=== PATIENT | female | born 1960 | race Asian ===

== ENCOUNTER 2017-01-03 05:39 | Day surgery (SDC) | END 2017-01-03 12:13 | disposition home or self-care (01) | DX: K44.9 Diaphragmatic hernia without obstruction or gangrene (principal); K21.0 Gastro-esophageal reflux disease with esophagitis; K29.60 Other gastritis without bleeding | CPT/HCPCS: 43239; 87081; J2250; J3010 ==

== ENCOUNTER 2017-03-18 11:57 | Day surgery (SDC) | payer OTHER ==
[2017-03-18] VITALS (14 sets, daily range): BP systolic 98–152; BP diastolic 56–84; PULSE 60–85; RESP 15–45; Ht 157.5 cm; Wt 64.0 kg
[~2017-03-18] VITALS: Ht 157.5 cm; Wt 64.0 kg
[2017-03-18] MEDS ORDERED: FAMO40TA52 PO (12:37)
[2017-03-18] MEDS ORDERED: PANT40TA3 PO (12:38)
--- NOTE | 2017-03-18 16:43 | HPN ---
Date/Time of Note Date/Time of Note DATE: 03/18/17 TIME: 16:43 Interval H&P Admission Note Pt. seen H&P reviewed: No system changes LIYA GILMORE MD Mar 18, 2017 16:43
[2017-03-18] MEDS ORDERED: ROCURONIUM 50 MG INJ ONE (17:53)
[2017-03-18] MEDS ORDERED: PROPOFOL 20 ML ONE (17:53)
[2017-03-18] MEDS ORDERED: MEPERIDINE 100 MG INJ ONE (17:53)
[2017-03-18] MEDS ORDERED: GLYCOPYRROLATE 0.4 MG INJ ONE (17:53)
[2017-03-18] MEDS ORDERED: NEOSTIGMINE 3 MG/3 ML SYRINGE ONE (17:53)
[2017-03-18] MEDS ORDERED: LIDOCAINE 2% (SDV) 5 ML INJ ONE (17:53)
[2017-03-18] MEDS ORDERED: SUCCINYLCHOLINE CHLORIDE 100 MG/5 ML SYG IV ONE (17:53)
[2017-03-18] MEDS ORDERED: CEFAZOLIN 1 GM INJ ONE (18:18)
[2017-03-18] MEDS ORDERED: DEXAMETHASONE 4 MG/ML 1 ML INJ ONE (18:38)
[2017-03-18] MEDS ORDERED: ONDANSETRON 4 MG INJ ONE (18:59)
[2017-03-18] MEDS ORDERED: METOCLOPRAMIDE 10 MG INJ IV PRN (19:00)
[2017-03-18] MEDS ORDERED: MIDAZOLAM 1 MG/ML 2 ML INJ IV PRN (19:00)
[2017-03-18] MEDS ORDERED: LABETALOL HCL 20MG INJ IV PRN (19:00)
[2017-03-18] MEDS ORDERED: hydrALAzine 20 MG INJ IV PRN (19:00)
[2017-03-18] MEDS ORDERED: EPHEDrine SULFATE 50 MG/5 ML SYG IV PRN (19:00)
[2017-03-18] MEDS ORDERED: FENTAnyl 50 MCG/ML VIAL IV PRN ×2 (19:00)
[2017-03-18] MEDS ORDERED: MEPERIDINE 25 MG INJ IV PRN (19:00)
[2017-03-18] MEDS ORDERED: ONDANSETRON 4 MG INJ IV PRN (19:00)
[2017-03-18] MEDS ORDERED: OXYCODONE/ACETAMINOPHEN (5/325) TAB PO PRN ×2 (19:00)
[2017-03-18] MEDS ORDERED: HYDROmorphONE (0.2 MG/ML) 10ML SYG IV PRN ×2 (19:00)
[2017-03-18] MEDS ORDERED: DIPHENHYDRAMINE 50 MG INJ IV PRN (19:00)
[2017-03-18] MEDS ORDERED: EPHEDrine SULFATE 50 MG/5 ML SYG ONE (19:13)
--- NOTE | 2017-03-18 19:20 | OPR ---
Date/Time of Note Date/Time of Note DATE: 03/18/17 TIME: 19:03 Operative Report Procedure Date: Mar 18, 2017 Preoperative Diagnosis Right vocal cord immobility, right thyroid nodule. Postoperative Diagnosis Same Operation/Procedure Performed Right thyroid lobectomy. Surgeon Liya Cifuentes Sulfonator Operator Divine Cleary Anesthesia Type: general Estimated Blood Loss: 10 - 50 ml's Transfusion none Specimen Right thyroid lobe and isthmus. Grafts/Implants none Complications none Pt Condition Post Procedure: stable Disposition: PACU Indications Right thyroid nodule, compressive, vocal cord paralysis. Procedure Description Description of procedure: The patient was identified in the holding area. We had a discussion to confirm understanding of indications, risks, benefits, alternatives and postoperative care associated with the operation. Informed consent was signed. The patient was taken the operating room and placed supine on the operating table. General endotracheal anesthesia was achieved with a recurrent laryngeal nerve monitor capable endotracheal tube and recurrent laryngeal nerve monitoring was performed throughout the duration of the case. A shoulder roll was placed. The neck was prepped and draped in normal sterile fashion. A 15 blade was used to make a horizontal incision in a preexisting cervical crease. Subplatysmal flaps were elevated circumferentially. The midline raphe between the strap muscles was identified and vertically divided using monopolar cautery. The right sided strap muscles were elevated off the thyroid lobe. Dissection was fairly easy as there were no adhesions or signs of invasion.The superior pole of the thyroid gland was identified and bluntly dissected free to isolate the superior laryngeal nerve and the super pole vascular pedicle. The nerve was kept intact as the vessels were individually ligated and transected with the Liga-sure small jaw. In addition hemoclips were used to assure continued hemostasis. More inferiorly, the middle thyroid vein was taken after careful ligation and transection. The inferior mass was quite large and almost retrosternal in location. It was bluntly freed and displaced medially to expose the TE groove. Dissection in the tracheoesophageal groove was used to identify the recurrent laryngeal nerve. It was followed superiorly to the cricothyroid joint and in this area the the superior parathyroid gland was identified. The parathyroid was carefully dissected laterally saving the pedicle after which overlying thyroid tissue was from its fibrous attachments to the surrounding soft tissues with the bipolar forceps. More inferior dissection was used to free the entirety of the recurrent laryngeal nerve. The inferior parathyroid and surrounding fat pad was at this point identified and swept laterally, again sparing the pedicle. Careful inspection and palpation of the level 6 babita basin at this point revealed no adenopathy. The nerve was stimulated in three locations with no sign of EMG activity. This was also absent at the CT joint. The thyroidectomy commenced in a lateral to medial fashion, dissecting the thyroid gland off of the recurrent nerve towards the trachea after which it was transected past the isthmus and sent for evaluation by pathology. Pathology came back with a diagnosis of benign disease so decision was made to close. The wound was irrigated with copious amounts of saline. Valsalva was performed. There was no bleeding or oozing. A 3-0 Vicryl was used to reapproximate the strap muscles in midline after which the same suture was used to reapproximate the platysma in interrupted buried fashion. Running 4-0 Monocryl was used to reapproximate the skin. The patient tolerated the procedure well and was extubated, taken to PACU in stable condition. Complications: None LIYA CIFUENTES MD Mar 18, 2017 19:15
[2017-03-18] MEDS ORDERED: HYDROCODONE/APAP (5/325) TAB PO PRN (19:30)
[2017-03-18] MEDS: FENTAnyl 50 MCG/ML VIAL IV PRN ×3 (19:40→20:00)
[2017-03-18] MEDS: HYDROmorphONE (0.2 MG/ML) 10ML SYG IV PRN ×2 (19:50→19:58)
== END 2017-03-18 20:49 | disposition home or self-care (01) ==
LOC: SDS 11:57
PROVIDERS: ATTEND Otolaryngology
DX: E04.2 Nontoxic multinodular goiter (principal); K21.9 Gastro-esophageal reflux disease without esophagitis; R06.00 Dyspnea, unspecified; J38.00 Paralysis of vocal cords and larynx, unspecified
CPT/HCPCS: 60220; 88307; 88331; J0690; J1100; J1170; J2175; J2405; J3010; J2710